=== PATIENT | male | born 1965 | race African-American/Black ===

== ENCOUNTER 2018-01-27 16:41 | Emergency (ER) | payer MEDICAID ==
[~2018-01-27] VITALS: Ht 185.4 cm; Wt 99.1 kg
[2018-01-27] MEDS ORDERED: ACET-66 PO (17:40)
[2018-01-27] MEDS ORDERED: INTE44DI SQ (17:40)
[2018-01-27] MEDS ORDERED: TOPI25 PO (17:40)
[2018-01-27] MEDS ORDERED: PROP20TA18 PO (17:40)
[2018-01-27] MEDS ORDERED: HEPATITIS A VACCINE, INACTI [ADULT] 1,440 UNITS/ML VIAL IM ONE (19:30)
[2018-01-27] MEDS ORDERED: TUBERCULIN, PURIFIED PROTEIN DERIVATIVE 5 TU/0.1 ML SYG ID ONE (19:30)
[2018-01-27 20:46] VITALS: BP 133/77
== END 2018-01-27 20:55 | disposition home or self-care (01) ==
LOC: EMS 16:44
DX: Z23 Encounter for immunization (principal); Z11.1 Encounter for screening for respiratory tuberculosis; Z88.6 Allergy status to analgesic agent
CPT/HCPCS: 90471; 90632; 99283